=== PATIENT | female | born 1980 | race African-American/Black ===

== ENCOUNTER 2017-05-25 18:56 | Emergency (ER) | payer MEDICAID ==
[~2017-05-25] VITALS: Ht 165.1 cm; Wt 98.0 kg
[~2017-05-25 18:56] MED LIST: ALBU2.5V13 IH
[2017-05-25] MEDS ORDERED: ACETAMINOPHEN WITH CODEINE 300/30MG TABLET PO STA (21:10)
[2017-05-25 23:00] VITALS: BP 126/75
== END 2017-05-26 00:08 | disposition home or self-care (01) ==
LOC: ER 21:39
DX: S09.8XXA Other specified injuries of head, initial encounter (principal); J45.909 Unspecified asthma, uncomplicated; W19.XXXA Unspecified fall, initial encounter; Y93.89 Activity, other specified; Y92.89 Other specified places as the place of occurrence of the external cause; Y99.8 Other external cause status
CPT/HCPCS: 70450; 70486; 81025; 99291; Z7610

== ENCOUNTER 2025-04-16 18:00 | Emergency (ER) | payer MEDICAID ==
[~2025-04-16] VITALS: Ht 165.1 cm; Wt 95.0 kg
[2025-04-16] MEDS: DEXAMETHASONE 10 MG/ML VIAL IM ONE (18:45)
[2025-04-16 19:16] LABS: BASOPHILS % 0.3 % (0.0-2.0); EOSINOPHILS % 2.1 % (0.0-5.0); HEMATOCRIT. 31.2 % (36.0-48.0); HEMOGLOBIN. 10.2 g/dL (12.0-16.0); LYMPHOCYTES % 13.5 % (20.0-50.0); MEAN PLATELET VOLUME 7.0 fl (7.4-10.4); MONOCYTES % 6.2 % (2.0-8.0); NEUTROPHILS % 77.9 % (40.0-76.0); PLATELET 393 x1000/uL (130-400); RED BLOOD CELL COUNT 3.59 mill/uL (4.2-5.4); RED CELL DISTRIBUTION WIDTH 13.8 % (11.6-14.6)
[2025-04-16 19:29] LABS: CREATININE 0.7 mg/dL (0.6-1.0); UREA NITROGEN BLOOD 12 mg/dL (9-23)
[2025-04-16 19:44] VITALS: PULSE 91; RESP 16; O2SAT 100
[2025-04-16] MEDS: IPRATROPIUM/ALBUTEROL 0.5-3(2.5)MG/3ML NEB HHN ONE (19:44)
[2025-04-16] MEDS ORDERED: GUAI-450 MT (21:04)
[2025-04-16] MEDS ORDERED: P50 MT (21:04)
[2025-04-16] MEDS ORDERED: AZIT250T12 PO (21:04)
[2025-04-16] MEDS ORDERED: AMOX1TAB16 MT (21:04)
[2025-04-16] MEDS ORDERED: ALBU2.5V13 NEB (21:04)
[2025-04-16] MEDS: AZITHROMYCIN 500 MG TABLET PO ONE (21:21)
[2025-04-16] MEDS: AMOXICILLIN/POTASSIUM CLAVULANATE 875/125MG TAB PO ONE (21:21)
[2025-04-16 21:26] VITALS: BP 139/93; PULSE 81; RESP 12; TEMP 36.7; O2SAT 98
== END 2025-04-16 21:28 | disposition home or self-care (01) ==
LOC: ER 18:00
DX: J18.9 Pneumonia, unspecified organism (principal); J45.909 Unspecified asthma, uncomplicated; Z98.890 Other specified postprocedural states; Z79.899 Other long term (current) drug therapy
CPT/HCPCS: 80048; 85025; 36415; 71045; 94640; 96372; 99284; J1100; Z7610 ×4; 94070; 94664; 98960